=== PATIENT | female | born 2000 | race Hispanic/Latino ===

== ENCOUNTER 2023-12-27 11:47 | Emergency (ER) | payer OTHER ==
[~2023-12-27] VITALS: Ht 165.1 cm; Wt 58.6 kg
[2023-12-27] MEDS ORDERED: PRENATABS FA T1 EACH PO (12:14)
[2023-12-27 13:13] VITALS: BP 101/71
== END 2023-12-27 13:14 | disposition home or self-care (01) ==
LOC: ED 11:47
DX: O99.891 Other specified diseases and conditions complicating pregnancy (principal); M54.32 Sciatica, left side; Z3A.11 11 weeks gestation of pregnancy; Z79.899 Other long term (current) drug therapy
CPT/HCPCS: 76801; 99283-25